=== PATIENT | female | born 1985 | race Caucasian/White ===

== ENCOUNTER → 2018-12-13 | Outpatient (CLI) | payer BC, OTHER ==
--- NOTE | 2018-12-13 13:16 | RAD ---
PROVIDED CLINICAL HISTORY/REASON FOR EXAM: LUMBAR RADICULOPATHY Findings: Number of images: Two Location: Thoracic spine There are 12 rib-bearing vertebral bodies. No vertebral anomaly. Vertebral body heights and disc spaces are maintained. No acute fracture or subluxation. Visualized soft tissues are unremarkable. IMPRESSION: Unremarkable thoracic spine radiographs. Electronically signed by: Deshawn La MD 12/13/2018 12:32 PM CDT
--- NOTE | 2018-12-13 13:17 | RAD ---
EXAM DESCRIPTION: Lumbar Spine 5 Views CLINICAL HISTORY: 33 years Female, LUMBAR RADICULOPATHY COMPARISON: None. FINDINGS: 5 views of the lumbar spine show vertebral body heights and intervertebral disc spaces to be maintained. No spondylolysis or spondylolisthesis. No significant facet arthropathy. Sacroiliac joints are unremarkable. A T-shaped IUD seen in the right mid pelvis. IMPRESSION: Unremarkable lumbar spine series. Electronically signed by: Jose Antonio Venegas MD 12/13/2018 12:33 PM CDT
== END ==
LOC: RESP 10:18
PROVIDERS: ATTEND Nurse Practitioner Family
DX: M54.16 Radiculopathy, lumbar region (principal); R06.00 Dyspnea, unspecified